=== PATIENT | male | born 1985 | race Caucasian/White ===

== ENCOUNTER 2016-07-28 17:31 | Emergency (ER) | payer SELFPAY ==
[2016-07-28] MEDS ORDERED: DIPH/PERTUSS(ACELL)/TETANUS VAC/PF 0.5 ML SYR (>=10YO) IM ONE (18:01)
--- NOTE | 2016-07-28 18:01 | ER Document Report ---
ED Medical Screen (RME) - General Stated Complaint: DOG BITE/FEVER Notes: Patient is a 30-year-old male presents emergency dept complaining of dog bite that happened last evening. Patient states the dog was his dog who is up-to- date on his vaccines. Last tetanus was 2010. evidence of superficial abrasions I have greeted and performed a rapid initial assessment of this patient. A comprehensive ED assessment and evaluation of the patient, analysis of test results and completion of the medical decision making process will be conducted by additional ED providers. Physical Exam - Vital signs Vitals: Temp Pulse Resp BP Pulse Ox 98.3 F 88 18 121/79 99 07/28/16 17:45 07/28/16 17:45 07/28/16 17:45 07/28/16 17:45 07/28/16 17:45 Course - Vital Signs Vital signs: Temp Pulse Resp BP Pulse Ox 98.3 F 88 18 121/79 99 07/28/16 17:45 07/28/16 17:45 07/28/16 17:45 07/28/16 17:45 07/28/16 17:45
[2016-07-28] MEDS ORDERED: KETOROLAC TROMETHAMINE 60 MG/2 ML SDV IM ONE (21:51)
[2016-07-28 22:05] LABS: HEMOGLOBIN 14.7 g/dL (13.5-17.0); HGB HCT DIFFERENCE 0.1; MEAN CORPUSCULAR HEMOGLOBIN 28.9 pg (27.0-33.4); MEAN CORPUSCULAR HGB CONC 33.5 g/dL (32.0-36.0); MEAN CORPUSCULAR VOLUME 86 fl (80-97); RED CELL DISTRIBUTION WIDTH 13.6 % (11.5-14.0)
[2016-07-28 22:21] LABS: BASOPHILS % (MANUAL) 0 % (0-2); EOSINOPHILS % (MANUAL) 1 % (0-6); LYMPHOCYTES % (MANUAL) 4 % (13-45); TOTAL CELLS COUNTED 100
[2016-07-28] MEDS ORDERED: AMOXICILLIN TR/POT CLAVULANATE 500-125 MG TAB PO ONE (22:21)
[2016-07-28 22:22] LABS: TOXIC GRANULATION SLIGHT
--- NOTE | 2016-07-28 22:26 | ER Document Report ---
ED General - General Chief Complaint: Dog Bite Stated Complaint: DOG BITE/FEVER Mode of Arrival: Ambulatory Information source: Patient Notes: Patient is a 30-year-old male who presents with a dog bite to his left hand yesterday evening. Patient states today he had body aches, fever and chills but denies any swelling, drainage or redness to the area of the bite. Patient states dog is his personal pet and is up-to-date on her vaccines. His tetanus was in 2010. He denies any headache, neck pain or stiffness, chest pain, shortness of breath, nausea, vomiting or diarrhea. He has not taken anything for pain. TRAVEL OUTSIDE OF THE [place] IN LAST 30 DAYS: No - Related Data Allergies/Adverse Reactions: No Known Allergies Allergy (Unverified 07/28/16 18:00) Past Medical History - Social History Smoking Status: Current Every Day Smoker Chew tobacco use (# tins/day): No Frequency of alcohol use: Social Drug Abuse: None Family History: Reviewed & Not Pertinent Patient has suicidal ideation: No Patient has homicidal ideation: No Renal/ Medical History: Denies: Hx Peritoneal Dialysis Review of Systems - Review of Systems Constitutional: See HPI EENT: No symptoms reported Cardiovascular: No symptoms reported Respiratory: No symptoms reported Gastrointestinal: No symptoms reported Genitourinary: No symptoms reported Male Genitourinary: No symptoms reported Musculoskeletal: See HPI Skin: No symptoms reported Hematologic/Lymphatic: No symptoms reported Neurological/Psychological: No symptoms reported Physical Exam - Vital signs Vitals: Temp Pulse Resp BP Pulse Ox 98.3 F 88 18 121/79 99 07/28/16 17:45 07/28/16 17:45 07/28/16 17:45 07/28/16 17:45 07/28/16 17:45 Interpretation: Normal - Notes Notes: PHYSICAL EXAM: CONSTITUTIONAL: Alert and oriented, well-appearing and in no acute distress. Appears comfortable, non-toxic. HENT: Normocephalic, atraumatic. Moist mucous membranes. EYES: Pupils equal round and reactive to light, EOM intact. Sclera anicteric, conjunctiva are normal. No entrapment. NECK: supple without lymphadenopathy. No midline tenderness. ROM intact. No meningeal signs. HEART: Regular rate and rhythm without murmurs. LUNGS: CTAB and equal. No wheezes, rales or rhonchi. GI: Normactive bowel sounds. Nontender, non-distended. No organomegaly. no CVAT. EXTREMITIES: Normal range of motion, no pitting edema. No cyanosis. Cap Refill < 3 seconds. NEURO: Cranial nerves grossly intact. Normal sensory/motor exams. PSYCH: Normal mood, normal affect. SKIN: Warm and dry. Normal turgor. No rashes or lesions noted. Superficial abrasions noted to left thenar eminence and wrist, no bleeding, drainage, erythema, warmth or evidence of abscess noted. Course - Re-evaluation Re-evalutation: 07/28/16 22:25 Patient seen and examined. Patient is UTD on tetanus and dog who is personal pet is UTD on rabies vaccines. No meningeal signs or evidence of abscess formation to left hand/wrist. Abrasions without puncture wound noted to left hand and wrist. Given IM toradol for pain and dose of PO abx here. 07/28/16 22:31 Reviewed lab work - leukocytosis noted. Patient states he is feeling much better after toradol medication. VSS remain stable. Discussed strict return precautions - patient in agreement with management and plan. Discharged home in stable condition, scripts provided. Return or follow-up with PMD in 1-2 days. - Vital Signs Vital signs: Temp Pulse Resp BP Pulse Ox 98.3 F 88 18 121/79 99 07/28/16 17:45 07/28/16 17:45 07/28/16 17:45 07/28/16 17:45 07/28/16 17:45 - Laboratory Result Diagrams: 07/28/16 21:45 Laboratory results interpreted by me: 07/28/16 21:45 WBC 17.0 H Seg Neuts % (Manual) 89 H Lymphocytes % (Manual) 4 L Abs Neuts (Manual) 15.1 H Discharge - Discharge Clinical Impression: Dog bite Qualifiers: Encounter type: initial encounter Qualified Code(s): W54.0XXA - Bitten by dog, initial encounter Condition: Stable Disposition: HOME, SELF-CARE Additional Instructions: Animal Bites Animal bites are often heavily contaminated with bacteria. In spite of thorough cleansing and proper treatment, these wounds frequently become infected. Bite wounds of the hands are especially prone to complications. Bites are dressed, if possible. Large wounds may require suturing after internal cleansing. Because of infection risk, some large wounds must remain unstitched. Your doctor is trained to advise you on the best treatment for your bite. Call the doctor at once if the wound becomes red, swollen, warm, increasingly painful, or if it begins to drain. Danger signs also include red streaks up the involved extremity, swollen glands in the groin or under the arm , or fever and chills. The risk of rabies from domestic animals is very low. Bats, sick animals, and wild animals may expose you to rabies. The physician, or the health department, will inform you if you will need to receive the rabies vaccine. Antibiotic Therapy You have been given an antibiotic prescription. It's important that you take all the medication, unless instructed otherwise by your physician. Failure to complete the entire course can result in relapse of your condition. Common side effects of antibiotics include nausea, intestinal cramping, or diarrhea. Women may develop vaginal yeast infections, and babies can get yeast (thrush) in the mouth following the use of antibiotics. Contact your physician if you develop significant side effects from this medication. Allergy to this antibiotic can result in hives, wheezing, faintness, or itching. If symptoms of allergy occur, stop the medication and call the doctor. Return immediately for any new or worsening symptoms. Follow-up with primary care provider, call tomorrow to make followup appointment. Prescriptions: Amox Tr/Potassium Clavulanate [Augmentin 875-125 Tablet] 1 tab PO BID 10 Days Naproxen [Naprosyn 250 mg Tablet] 500 mg PO DAILY PRN #14 tablet PRN Reason:
[2016-07-28 23:11] VITALS: BP 109/66
== END 2016-07-28 23:10 | disposition home or self-care (01) ==
LOC: ER 17:31
DX: S60.572A Other superficial bite of hand of left hand, initial encounter (principal); S60.872A Other superficial bite of left wrist, initial encounter; W54.0XXA Bitten by dog, initial encounter; R50.9 Fever, unspecified; R52 Pain, unspecified; D72.829 Elevated white blood cell count, unspecified; F17.200 Nicotine dependence, unspecified, uncomplicated
CPT/HCPCS: 99283; 96372; 36415; 85025; 87804; J1885